=== PATIENT | male | born 1965 | race Caucasian/White ===

== ENCOUNTER 2017-10-13 21:37 | Emergency (ER) | payer MEDICARE ==
[~2017-10-13] VITALS: Ht 177.8 cm; Wt 113.6 kg
[2017-10-13] MEDS ORDERED: HYDR-4069 PO (21:58)
[2017-10-13] MEDS ORDERED: CARV25 PO (21:58)
[2017-10-13] MEDS ORDERED: SPIR25 PO (21:58)
[2017-10-13] MEDS ORDERED: SULF1TAB42 PO (21:58)
[2017-10-13] MEDS ORDERED: MAGN30TA2 PO (21:58)
[2017-10-13] MEDS ORDERED: KDUR10 PO (21:58)
[2017-10-13] MEDS ORDERED: FURO20 PO (21:58)
[2017-10-13] MEDS ORDERED: RANI150T7 PO (21:58)
[2017-10-13] MEDS ORDERED: HYDROmorphone 2 MG/ML SYRINGE IVP ONE ×2 (22:00→23:30)
[2017-10-13] MEDS ORDERED: LORazepam 2 MG/ML VIAL IVP ONE ×2 (22:00→23:30)
[2017-10-13] MEDS ORDERED: SODIUM CHLORIDE 0.9% 1,000 ML IV ONE (22:00)
[2017-10-13 22:08] LABS: BASOPHILS # (AUTO) 0.08 K/uL (0.00-0.20); BASOPHILS % (AUTO) 0.8 % (0.0-2.0); EOSINOPHILS # (AUTO) 0.35 K/uL (0.00-0.70); EOSINOPHILS % (AUTO) 3.39 % (1.0-6.0); HEMATOCRIT 33.3 % (41-53); HEMOGLOBIN 11.3 g/dL (13.5-17.5); LYMPHOCYTES % (AUTO) 19.1 % (22.0-44.0); MEAN CORPUSCULAR HEMOGLOBIN 28.5 pg (26.0-34.0); MEAN CORPUSCULAR VOLUME 84 fL (80-100); MONOCYTES # (AUTO) 1.6 K/uL (0.1-1.0); MONOCYTES % (AUTO) 15.5 % (2.0-9.0); NEUTROPHILS # (AUTO) 6.3 K/uL (1.8-7.7); NEUTROPHILS % (AUTO) 61.3 % (40.0-70.0); PLATELET COUNT (AUTO) 385 K/uL (150-450); RED BLOOD CELL COUNT(AUTO) 3.97 MIL/uL (4.50-5.90); RED CELL DISTRIBUTION WIDTH 17.6 % (11.5-14.5); WHITE BLOOD COUNT (AUTO) 10.3 K/uL (4.5-11.0)
[2017-10-13 22:19] LABS: CALCIUM, TOTAL 8.6 mg/dL (8.8-10.5); CREATININE 2.18 mg/dL (0.60-1.30); POTASSIUM 3.9 mmol/L (3.5-5.1)
[2017-10-13 22:21] LABS: INR 3.1 (0.9-1.1); PROTHROMBIN TIME 33.1 SEC (9.4-11.6)
[2017-10-13 22:25] LABS: ALBUMIN 3.8 g/dL (3.4-5.0); BILIRUBIN,TOTAL 0.3 mg/dL (0.1-1.0); TOTAL PROTEIN, SERUM 7.5 g/dL (6.4-8.2)
[2017-10-13 22:32] LABS: RBC MORPHOLOGY COMMENT ABNORMAL RBC MORPH
[2017-10-14] MEDS ORDERED: LORazepam 2 MG/ML VIAL IVP ONE ×2 (02:00→04:15)
[2017-10-14] MEDS ORDERED: HYDROmorphone 2 MG/ML SYRINGE IVP ONE ×2 (02:00→04:15)
[2017-10-14 04:07] VITALS: BP 119/82
== END 2017-10-14 04:21 | disposition short-term general hospital (02) ==
LOC: EMS 21:39
DX: I97.89 Other postprocedural complications and disorders of the circulatory system, not elsewhere classified (principal); I71.4 Abdominal aortic aneurysm, without rupture; I11.0 Hypertensive heart disease with heart failure; I50.9 Heart failure, unspecified; I25.2 Old myocardial infarction
CPT/HCPCS: 36415; 80053; 85025; 85610; 85730; 93926; 96361; 96374; 96375; 96376; 99285; J1170 ×2; J2060 ×2; J7030